=== PATIENT | female | born 1930 | race Caucasian/White ===

== ENCOUNTER → 2019-01-16 | Outpatient (CLI) | payer MEDICARE ==
[~2019-01-16] MED LIST: REGADENOSON 0.4 MG/5 ML SYR IV ONE
--- NOTE | 2019-01-23 16:01 | Myoview Stress Test ---
DATE OF STUDY: 01/16/2019 09:50:00 Stress Test - Treadmill ONLY PROCEDURE TITLE: Rest stress single isotope SPECT imaging with pharmacologic stress and gated SPECT imaging. PROCEDURE IN DETAIL: Pharmacologic stress test was performed with regadenoson per protocol. The resting heart rate was 98 beats per minute, increased to 135 beats per minute. During the regadenoson infusion, the resting blood pressure was 159/86 mmHg and decreased to 128/85 mmHg, which is a normal response. The resting electrocardiogram demonstrated atrial fibrillation. There were no ST-segment changes suggestive of myocardial ischemia. Next, myocardial perfusion imaging was performed at rest following the injection of 11 mCi of tetrofosmin. At peak pharmacologic effect, the patient was injected with 33 mCi of tetrofosmin gated post-stress tomographic imaging was performed. FINDINGS: The overall quality of the study is fair. Left ventricular cavity is noted to be normal size on the rest and stress studies. SPECT images demonstrate a small mild perfusion defect in the anteroseptal wall on stress that is not present at rest. Gated SPECT imaging reveals normal myocardial thickening and wall motion. The left ventricular ejection fraction was calculated to be 57%. IMPRESSION: Myocardial perfusion imaging is abnormal. There is a small area of ischemia in the anterior septal wall. Overall, left ventricular systolic function was normal without regional wall motion abnormalities. Isi Nguyễn MD ABS/MODL /[id number]
== END ==
LOC: NM 09:29
PROVIDERS: ATTEND Internal Medicine
DX: I50.20 Unspecified systolic (congestive) heart failure (principal); I48.91 Unspecified atrial fibrillation
CPT/HCPCS: 78452; 93017; A9502; J2785

== ENCOUNTER → 2020-02-19 | Outpatient (CLI) | payer MEDICARE | LOC: RAD 12:22 | PROVIDERS: ATTEND Internal Medicine | DX: I50.20 Unspecified systolic (congestive) heart failure (principal) | CPT/HCPCS: 93306 ==